=== PATIENT | male | born 2000 ===

== ENCOUNTER 2024-10-02 03:33 | Emergency (ER) | payer MEDICAID, SELFPAY ==
[2024-10-02 03:39] VITALS: BP 119/73; BP 122/80; PULSE 101; PULSE 84; RESP 20; TEMP 37; O2SAT 100; O2SAT 98; BMI 27.9
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
[2024-10-02 06:12] VITALS: BP 112/71; PULSE 89; RESP 20; TEMP 36.4; O2SAT 96
== END 2024-10-02 06:18 | disposition home or self-care (01) ==
LOC: HO.ED 06:13
PROVIDERS: Emergency Provider Internal Medicine
DX: T14.90XA Injury, unspecified, initial encounter (principal); Y04.2XXA Assault by strike against or bumped into by another person, initial encounter; M25.511 Pain in right shoulder; Y93.9 Activity, unspecified; Y92.9 Unspecified place or not applicable; Y99.9 Unspecified external cause status
CPT/HCPCS: 99283; 99284